=== PATIENT | female | born 1955 | race Caucasian/White ===

== ENCOUNTER 2019-10-06 07:22 | Outpatient (CLI) | payer MEDICARE ==
[2019-10-06 15:11] LABS: ALBUMIN 4.3 g/dL (3.2-5.5); ALBUMIN/GLOBULIN RATIO 1.2 (1.0-2.2); ALKALINE PHOSPHATASE 116 IU/L (42-121); ALT ALANINE AMINOTRANSFERASE 10 IU/L (10-60); AST ASPARTATE AMINOTRANSFERASE 15 IU/L (10-42); BILIRUBIN,TOTAL 1.1 mg/dL (0.2-1.0); BUN - BLOOD UREA NITROGEN 10 mg/dL (6-20); CALCIUM 9.5 mg/dL (8.5-10.3); CARBON DIOXIDE - CO2 24 mmol/L (21-32); CHLORIDE 100 mmol/L (101-111); CHOL/HDL RATIO 4.2 (<4.4); CHOLESTEROL 302 mg/dL; CREATININE 0.6 mg/dL (0.4-1.0); GLUCOSE 118 mg/dL (70-100); HDL CHOLESTEROL 72 mg/dL; LDL CHOLESTEROL,CALCULATED 203 mg/dL; LDL/HDL RATIO 2.8 (<4.4); SODIUM 133 mmol/L (135-145); TOTAL PROTEIN 7.9 g/dL (6.7-8.2); VLDL CHOLESTEROL 27 mg/dL
[2019-10-06 15:17] LABS: FREE T3 3.58 pg/mL (2.5-3.9)
[2019-10-06 15:18] LABS: THYROID STIMULATING HORMONE 1.47 uIU/mL (0.34-5.60)
[2019-10-06 15:19] LABS: FREE T4 (FREE THYROXINE) 1.39 ng/dL (0.58-1.64)
== END 2019-10-06 07:23 | disposition home or self-care (01) ==
LOC: LAB.S 07:22
PROVIDERS: ATTEND Nurse Practitioner
DX: E03.9 Hypothyroidism, unspecified (principal); Z83.49 Family history of other endocrine, nutritional and metabolic diseases; Z79.899 Other long term (current) drug therapy
CPT/HCPCS: 36415; 80053; 80061; 83721; 84439; 84443; 84481